=== PATIENT | male | born 1965 | race Caucasian/White ===

== ENCOUNTER 2018-01-29 20:04 | Emergency (ER) | payer MEDICARE, OTHER ==
[~2018-01-29] VITALS: Ht 170.2 cm; Wt 68.2 kg
[~2018-01-29 20:04] MED LIST: AMLO5TAB95 PO; HYDR-3965 PO
[2018-01-29 20:20] VITALS: BP 190/116
[2018-01-29] MEDS ORDERED: SULF1TAB49 PO (21:23)
== END 2018-01-29 21:30 | disposition home or self-care (01) ==
LOC: ER 20:06
DX: L03.114 Cellulitis of left upper limb (principal); L03.113 Cellulitis of right upper limb; I10 Essential (primary) hypertension; Z86.711 Personal history of pulmonary embolism; Z79.899 Other long term (current) drug therapy
CPT/HCPCS: 99283

== ENCOUNTER 2019-06-19 12:10 | Inpatient (IN) | payer MEDICAID ==
[~2019-06-19] VITALS: Ht 170.2 cm; Wt 84.0 kg
[2019-06-19] MEDS ORDERED: albuterol 2.5 MG/3 ML nebule CONTNEB PRN (13:20)
[2019-06-19] MEDS ORDERED: methylPREDNISolone sod succ 125mg/2ml vial IV ONE (13:20)
[2019-06-19 13:34] LABS: BASOPHILS # (AUTO) 0.1 X10'3 (0-0.2); EOSINOPHILS # (AUTO) 0.2 X10'3 (0-0.9); EOSINOPHILS % (AUTO) 1.4 % (0-6); LYMPHOCYTES # (AUTO) 1.9 X10'3 (1.1-4.8); LYMPHOCYTES % (AUTO) 14.5 % (21-51); MEAN CORPUSCULAR HEMOGLOBIN 29.2 PG (27.0-31.0); MEAN CORPUSCULAR HGB CONC 34.2 g/dL (33.0-36.5); MEAN CORPUSCULAR VOLUME 85.5 FL (78-98); MEAN PLATELET VOLUME 9.7 FL (7.4-10.4); MONOCYTES # (AUTO) 0.6 X10'3 (0-0.9); MONOCYTES % (AUTO) 4.2 % (2-12); NEUTROPHILS # (AUTO) 10.4 X10'3 (1.8-7.7); NEUTROPHILS % (AUTO) 78.9 % (42-75); PLATELET COUNT 288 X10'3 (140-440); RED BLOOD COUNT 5.14 X10'6 (4.70-6.10); RED CELL DISTRIBUTION WIDTH 13.9 % (11.5-14.5); WHITE BLOOD COUNT 13.2 X10'3 (4.5-11.0)
[2019-06-19 13:48] LABS: ALANINE AMINOTRANSFERASE 79 U/L (12-78); ALBUMIN 4.2 G/DL (3.4-5.0); ALBUMIN/GLOBULIN RATIO 1.2 (1.1-1.5); ALKALINE PHOSPHATASE 60 IU/L (46-116); ANION GAP 10 (8-16); ASPARTATE AMINO TRANSFERASE 33 U/L (10-37); BILIRUBIN,TOTAL 0.7 MG/DL (0.1-1.0); BLOOD UREA NITROGEN 11 MG/DL (7-18); BUN/CREATININE RATIO 11.5 (5.4-32.0); CALCIUM 8.5 MG/DL (8.5-10.1); CHLORIDE 107 MMOL/L (99-107); CREATININE 0.96 MG/DL (0.60-1.10); GLUCOSE 112 MG/DL (70-104); POTASSIUM 4.1 MMOL/L (3.5-5.1); SODIUM 143 MMOL/L (135-145); TOTAL CARBON DIOXIDE 26.4 MMOL/L (24-32); TOTAL PROTEIN 7.8 G/DL (6.4-8.2); eGFR 81 ML/MIN
--- NOTE | 2019-06-19 14:35 | NUR ---
pt sees dr. maxwell at [facility]. Has lisinopril rx but did not pick it up at [facility].
[2019-06-19] MEDS ORDERED: magnesium 2GM in 50ml NS 50 ML IV ONE (15:00)
[2019-06-19] MEDS ORDERED: DOXYCYCLINE 100MG CAPSULE PO STA (15:34)
[2019-06-19] MEDS ORDERED: magnesium hydroxide 30ml (MOM) UD suspension PO PRN (15:35)
[2019-06-19] MEDS ORDERED: HYDROcodone/acetaminophen 5mg/325mg tablet PO PRN (15:35)
[2019-06-19] MEDS ORDERED: ondansetron/PF 4mg/2ml inj IV PRN (15:35)
[2019-06-19] MEDS ORDERED: mag hydrox/Alum hydrox/simeth 30ml oral suspension PO PRN (15:35)
[2019-06-19] MEDS ORDERED: acetaminophen 325mg tablet PO PRN ×2 (15:35)
[2019-06-19] MEDS ORDERED: HYDROcodone/acetaminophen 10/325mg tab PO PRN (15:35)
[2019-06-19] MEDS: methylPREDNISolone sod succ 125mg/2ml vial IV SCH (16:16)
--- NOTE | 2019-06-19 16:22 | NUR ---
Flu Negative siolation removed aware.
[2019-06-19] MEDS ORDERED: LISI30TA4 PO (16:32)
[2019-06-19] MEDS ORDERED: FLUT100D2 INH (16:32)
[2019-06-19] MEDS: nicotine 7mg patch - 24hr TD SCH (17:10)
[2019-06-19 17:11] LABS: ABG BASE EXCESS -1.7 mmol/L (-2.0-3.0); ABG HCO3 21.1 mmol/L (22.0-26.0); ABG OXYGEN SATURATION 93.6 % (95-98); ABG PCO2 (T) 31.1 mmHg (35.0-45.0); ABG PO2 (T) 63.8 mmHg (83-108); ALLEN'S TEST Positive; FCOHb 1.3 % (0.5-1.5); FMetHb 0.1 % (0.3-1.12); FO2Hb 92.3 % (94-100); TOTAL HEMOGLOBIN 15.2 G/dl (14.0-17.9)
--- NOTE | 2019-06-19 17:19 | NUR ---
Call to Dr. Alan to inform that pt. has HTN 195/95. No other S/S of distress. VS WNL.
[2019-06-19] MEDS ORDERED: hydrALAZINE 20mg/ml inj. IV PRN (17:20)
--- NOTE | 2019-06-19 17:21 | NUR ---
REPORT TAKEN FROM RN CLINICAL QUALITY ANDREEA CRUZ, REPORTED OFFF TO GET CRUZ PRIMARY RN ON TELE.
[2019-06-19] MEDS ORDERED: LISI1TAB28 PO (17:23)
--- NOTE | 2019-06-19 17:25 | NUR ---
Received report from Branden CRUZ
[2019-06-19] MEDS ORDERED: GLEC1TAB PO (17:32)
--- NOTE | 2019-06-19 17:58 | NUR ---
Patient arrived to the unit accompanied by ED personnel. Vital signs obtained, telemetry monitoring initiated, patient belongings placed in closet, and patient oriented to room and call light. Will continue to monitor
--- NOTE | 2019-06-19 18:13 | NUR ---
Patient in room PCU 3013. I have received report from ANTHONY Brito and had the opportunity to ask questions and assume patient care.
--- NOTE | 2019-06-19 18:42 | NUR ---
Problems reprioritized. Patient report given, questions answered & plan of care reviewed with Maddison CRUZ.
[2019-06-19 19:40] VITALS: BP 144/119
[2019-06-19] MEDS: ipratropium/albuterol 3ml nebule NEB SCH (20:58)
[2019-06-19 23:00] VITALS: BP 150/84
[2019-06-20] MEDS: methylPREDNISolone sod succ 125mg/2ml vial IV SCH ×3 (00:02→16:05)
[2019-06-20 01:26] LABS: ALANINE AMINOTRANSFERASE 66 U/L (12-78); ALBUMIN 3.8 G/DL (3.4-5.0); ALKALINE PHOSPHATASE 57 IU/L (46-116); ANION GAP 9 (8-16); ASPARTATE AMINO TRANSFERASE 21 U/L (10-37); BILIRUBIN,TOTAL 0.9 MG/DL (0.1-1.0); BLOOD UREA NITROGEN 18 MG/DL (7-18); BUN/CREATININE RATIO 16.4 (5.4-32.0); CALCIUM 8.9 MG/DL (8.5-10.1); CHLORIDE 105 MMOL/L (99-107); GLUCOSE 141 MG/DL (70-104); POTASSIUM 3.9 MMOL/L (3.5-5.1); SODIUM 140 MMOL/L (135-145); TOTAL CARBON DIOXIDE 25.7 MMOL/L (24-32); TOTAL PROTEIN 7.6 G/DL (6.4-8.2); eGFR 69 ML/MIN
[2019-06-20 01:29] LABS: BASOPHILS % (AUTO) 0.1 % (0-1); EOSINOPHILS % (AUTO) 0.1 % (0-6); HEMATOCRIT 41.9 % (42.0-52.0); HEMOGLOBIN 14.4 g/dl (14.0-17.9); LYMPHOCYTES # (AUTO) 0.7 X10'3 (1.1-4.8); LYMPHOCYTES % (AUTO) 5.6 % (21-51); MEAN CORPUSCULAR HEMOGLOBIN 29.8 PG (27.0-31.0); MEAN CORPUSCULAR HGB CONC 34.4 g/dL (33.0-36.5); MEAN CORPUSCULAR VOLUME 86.7 FL (78-98); MEAN PLATELET VOLUME 9.9 FL (7.4-10.4); MONOCYTES # (AUTO) 0.1 X10'3 (0-0.9); NEUTROPHILS # (AUTO) 11.9 X10'3 (1.8-7.7); NEUTROPHILS % (AUTO) 93.2 % (42-75); PLATELET COUNT 268 X10'3 (140-440); RED BLOOD COUNT 4.83 X10'6 (4.70-6.10); RED CELL DISTRIBUTION WIDTH 13.9 % (11.5-14.5); WHITE BLOOD COUNT 12.8 X10'3 (4.5-11.0)
[2019-06-20 03:16] VITALS: BP 132/69
[2019-06-20 06:00] VITALS: BP 181/103
--- NOTE | 2019-06-20 06:02 | NUR ---
Problems reprioritized. Patient report given, questions answered & plan of care reviewed with ANTHONY Brito.
--- NOTE | 2019-06-20 06:07 | NUR ---
Patient in room PCU 3013. I have received report from Maddison CRUZ and had the opportunity to ask questions and assume patient care.
[2019-06-20] MEDS ORDERED: GLECAPREVIR PO SCH (08:00)
[2019-06-20] MEDS ORDERED: PIBRENTASVIR PO SCH (08:00)
[2019-06-20] MEDS: nicotine 7mg patch - 24hr TD SCH (08:59)
[2019-06-20] MEDS: HYDROchlorothiazide 12.5mg capsule PO SCH (08:59)
[2019-06-20] MEDS: lisinopril 20mg tablet PO SCH (08:59)
[2019-06-20] MEDS: ipratropium/albuterol 3ml nebule NEB SCH ×3 (09:17→21:08)
[2019-06-20] MEDS: PIBRENTASVIR PO SCH (09:21)
[2019-06-20] MEDS: GLECAPREVIR PO SCH (09:21)
[2019-06-20] MEDS ORDERED: FLU VACC QS2019-20 36MOS UP/PF 60 MCG/0.5 ML SYRINGE IMVAC ONE (10:00)
[2019-06-20 11:00] VITALS: BP 167/94
[2019-06-20 15:00] VITALS: BP 137/80
[2019-06-20 18:30] VITALS: BP 161/91
--- NOTE | 2019-06-20 18:30 | NUR ---
Problems reprioritized. Patient report given, questions answered & plan of care reviewed with Maddison CRUZ.
--- NOTE | 2019-06-20 18:48 | NUR ---
Patient in room PCU 3013. I have received report from ANTHONY Brito and had the opportunity to ask questions and assume patient care.
[2019-06-20] MEDS: DOXYCYCLINE 100MG CAPSULE PO SCH (19:27)
[2019-06-20 22:30] VITALS: BP 154/94
[2019-06-21] MEDS: methylPREDNISolone sod succ 125mg/2ml vial IV SCH ×2 (00:54→07:51)
[2019-06-21 02:30] VITALS: BP 143/89
[2019-06-21 05:04] LABS: ALANINE AMINOTRANSFERASE 50 U/L (12-78); ALBUMIN 3.6 G/DL (3.4-5.0); ALKALINE PHOSPHATASE 50 IU/L (46-116); ANION GAP 8 (8-16); ASPARTATE AMINO TRANSFERASE 12 U/L (10-37); BASOPHILS # (AUTO) 0.1 X10'3 (0-0.2); BASOPHILS % (AUTO) 0.8 % (0-1); BILIRUBIN,TOTAL 0.4 MG/DL (0.1-1.0); BLOOD UREA NITROGEN 27 MG/DL (7-18); BUN/CREATININE RATIO 24.8 (5.4-32.0); CALCIUM 8.8 MG/DL (8.5-10.1); CHLORIDE 104 MMOL/L (99-107); CREATININE 1.09 MG/DL (0.60-1.10); EOSINOPHILS % (AUTO) 0 % (0-6); GLUCOSE 155 MG/DL (70-104); HEMATOCRIT 41.3 % (42.0-52.0); LYMPHOCYTES # (AUTO) 0.7 X10'3 (1.1-4.8); LYMPHOCYTES % (AUTO) 4.5 % (21-51); MEAN CORPUSCULAR HEMOGLOBIN 29.5 PG (27.0-31.0); MEAN CORPUSCULAR HGB CONC 33.8 g/dL (33.0-36.5); MEAN CORPUSCULAR VOLUME 87.2 FL (78-98); MEAN PLATELET VOLUME 10.1 FL (7.4-10.4); MONOCYTES # (AUTO) 0.2 X10'3 (0-0.9); MONOCYTES % (AUTO) 1.5 % (2-12); NEUTROPHILS # (AUTO) 15.4 X10'3 (1.8-7.7); NEUTROPHILS % (AUTO) 93.2 % (42-75); PLATELET COUNT 269 X10'3 (140-440); POTASSIUM 4.1 MMOL/L (3.5-5.1); RED BLOOD COUNT 4.74 X10'6 (4.70-6.10); RED CELL DISTRIBUTION WIDTH 14.2 % (11.5-14.5); SODIUM 138 MMOL/L (135-145); TOTAL CARBON DIOXIDE 25.9 MMOL/L (24-32); TOTAL PROTEIN 7.1 G/DL (6.4-8.2); WHITE BLOOD COUNT 16.5 X10'3 (4.5-11.0); eGFR 70 ML/MIN
--- NOTE | 2019-06-21 06:09 | NUR ---
Problems reprioritized. Patient report given, questions answered & plan of care reviewed with ANTHONY Brito.
--- NOTE | 2019-06-21 06:12 | NUR ---
Patient in room PCU 3013. I have received report from Maddison CRUZ and had the opportunity to ask questions and assume patient care.
[2019-06-21 07:00] VITALS: BP 148/91
[2019-06-21] MEDS: nicotine 7mg patch - 24hr TD SCH (07:51)
[2019-06-21] MEDS: DOXYCYCLINE 100MG CAPSULE PO SCH (07:51)
[2019-06-21 07:52] VITALS: BP_SYST 148
[2019-06-21] MEDS: GLECAPREVIR PO SCH (07:52)
[2019-06-21] MEDS: HYDROchlorothiazide 12.5mg capsule PO SCH (07:52)
[2019-06-21] MEDS: PIBRENTASVIR PO SCH (07:52)
[2019-06-21] MEDS: lisinopril 20mg tablet PO SCH (07:52)
[2019-06-21] MEDS: ipratropium/albuterol 3ml nebule NEB SCH (08:51)
--- NOTE | 2019-06-21 12:20 | NUR ---
Page sent to Dr. Alan: PAGER ID: [phone] MESSAGE: [phone] Adrian Rock: The patient's ride is here until 1:00, he's wondering if he will can be discharged before then? I know you're really busy, sorry! Thanks, Alisha [phone]
[2019-06-21] MEDS ORDERED: DOXY-224 PO (12:30)
[2019-06-21] MEDS ORDERED: PRED20TA PO (12:30)
[2019-06-21] MEDS ORDERED: NICO-630 TD (12:30)
[2019-06-21] MEDS ORDERED: ALBU6.7H9 INH (12:34)
--- NOTE | 2019-06-21 13:08 | NUR ---
Patient stable for discharge per MD order. All discharge education and information reviewed with patient before signing necessary paperwork. IV discontinued with catheter in tact. seasonal recruiter already removed. All patient belonging packed up, including prescriptions from the pharmacy, and sent home with patient. Prescriptions called in to [facility] on [address] including Lisinopril/hydrochorothiazide. Patient went home in private vehicle with family member.
--- NOTE | 2019-06-21 13:18 | NUR ---
Page sent to Dr. Alan: PAGER ID: [phone] MESSAGE: [phone] Adrian Rock: The patient is asking for a refill on his Lisinopril/Hydrochlorothiazide 20-12.5 Daily. Can I call it in for him in addition to the new prescriptions? Thank you, Alisha [phone]
[2019-06-22] MEDS ORDERED: FLU VACC QS2019-20 36MOS UP/PF 60 MCG/0.5 ML SYRINGE IMVAC ONE (10:00)
== END 2019-06-21 13:05 | disposition home or self-care (01) | DRG 140 ==
LOC: ER 12:11 → ED HOLD 15:34 → EDBEDREQ 16:34 → PCU 3S 17:54
PROVIDERS: ADMIT Family Medicine; ATTEND Family Medicine
DX: J44.1 Chronic obstructive pulmonary disease with (acute) exacerbation (principal); J96.00 Acute respiratory failure, unspecified whether with hypoxia or hypercapnia; I10 Essential (primary) hypertension; B19.20 Unspecified viral hepatitis C without hepatic coma; F17.210 Nicotine dependence, cigarettes, uncomplicated; Z71.6 Tobacco abuse counseling; Z80.42 Family history of malignant neoplasm of prostate; Z82.5 Family history of asthma and other chronic lower respiratory diseases; Z85.46 Personal history of malignant neoplasm of prostate; Z86.711 Personal history of pulmonary embolism
CPT/HCPCS: 36415; 36600; 71045; 80053; 82803; 83880; 84484; 85018; 85025; 87070; 87081; 87502; 87503; 93005; 94640; 94667; 94760; 97161; G0378; J0360; J2930; J3475; Q2037